=== PATIENT | male | born 1955 | race Caucasian/White ===

== ENCOUNTER 2018-01-27 12:49 | Emergency (ER) | payer BC, OTHER ==
[2018-01-27] MEDS ORDERED: RABIES IMMUNE GLOBULIN 1500 INTERNATIONAL UNITS/10 ML VIAL (90375) IM (14:45)
[2018-01-27] MEDS: RABIES IMMUNE GLOBULIN 300 INTERNATIONAL UNITS/2 ML VIAL (90375) IM (14:45)
[2018-01-27] MEDS: RABIES VACCINE HUMAN 2.5 INTERNATIONAL UNITS/ML VIAL (90675) IM (16:56)
[2018-01-27] MEDS: RABIES IMMUNE GLOBULIN 1500 INTERNATIONAL UNITS/10 ML VIAL (90375) IM (16:58)
== END 2018-01-27 18:42 | disposition home or self-care (01) ==
LOC: M ED 12:49
DX: S01.85XA Open bite of other part of head, initial encounter (principal); W55.81XA Bitten by other mammals, initial encounter; Y92.018 Other place in single-family (private) house as the place of occurrence of the external cause; Z20.3 Contact with and (suspected) exposure to rabies
CPT/HCPCS: 90375

== ENCOUNTER 2018-01-30 09:53 | Emergency (ER) | payer BC, OTHER ==
[2018-01-30] MEDS: RABIES VACCINE HUMAN 2.5 INTERNATIONAL UNITS/ML VIAL (90675) IM (10:29)
== END 2018-01-30 11:03 | disposition home or self-care (01) ==
LOC: M ED 09:53
DX: Z20.3 Contact with and (suspected) exposure to rabies (principal); Z23 Encounter for immunization
CPT/HCPCS: 90675

== ENCOUNTER 2018-02-03 02:23 | Emergency (ER) | payer BC, OTHER | END 2018-02-03 03:29 | disposition left against medical advice (07) | LOC: M ED 02:23 | DX: Z53.21 Procedure and treatment not carried out due to patient leaving prior to being seen by health care provider (principal) ==

== ENCOUNTER 2018-02-03 18:18 | Emergency (ER) | payer BC, OTHER ==
[2018-02-03] MEDS: RABIES VACCINE HUMAN 2.5 INTERNATIONAL UNITS/ML VIAL (90675) IM (19:13)
== END 2018-02-03 19:33 | disposition home or self-care (01) ==
LOC: M ED 18:18
DX: Z20.3 Contact with and (suspected) exposure to rabies (principal)
CPT/HCPCS: 90675

== ENCOUNTER 2018-02-10 13:03 | Emergency (ER) | payer BC, OTHER ==
[2018-02-10] MEDS: RABIES VACCINE HUMAN 2.5 INTERNATIONAL UNITS/ML VIAL (90675) IM (13:19)
== END 2018-02-10 13:45 | disposition home or self-care (01) ==
LOC: M ED 13:03
DX: Z23 Encounter for immunization (principal); Z20.3 Contact with and (suspected) exposure to rabies
CPT/HCPCS: 90675

== ENCOUNTER 2021-09-29 14:42 | Emergency (ER) | payer BC, OTHER ==
[~2021-09-29] VITALS: Ht 167.6 cm; Wt 81.8 kg
[2021-09-29] MEDS ORDERED: CYCL-707 (15:34)
[2021-09-29] MEDS ORDERED: PRED20TA PO (17:41)
[2021-09-29] MEDS ORDERED: CYCL-707 PO (17:41)
[2021-09-29 18:37] VITALS: BP 180/83
== END 2021-09-29 18:38 | disposition home or self-care (01) ==
LOC: M ED 14:42
DX: M51.36 Other intervertebral disc degeneration, lumbar region (principal); M54.31 Sciatica, right side

== ENCOUNTER 2021-11-12 18:59 | Emergency (ER) | payer BC ==
[~2021-11-12] VITALS: Ht 167.6 cm; Wt 104.6 kg
[~2021-11-12 18:59] MED LIST: CYCL-707; CYCL-707 PO; PRED20TA PO
[2021-11-12] MEDS ORDERED: METHOCARBAMOL 1,000 MG/10 ML VIAL (J2800) IV ONE (21:30)
[2021-11-12 21:38] LABS: BASO % 0.5 % (0.0-1.0); EOS # 0.1 10^3/uL (0.0-0.5); EOS % 1.6 % (0.0-3.0); HEMATOCRIT 45.4 % (42.0-52.0); HEMOGLOBIN 14.1 g/dl (13.5-17.5); LYMPH # 3.2 10^3/uL (1.5-5.0); LYMPH % 39.5 % (24.0-44.0); MEAN CORPUSCULAR HEMOGLOBIN 26.9 pg (27.0-33.0); MEAN CORPUSCULAR HGB CONC 31.1 g/dl (32.0-36.5); MEAN CORPUSCULAR VOLUME 86.5 fl (80.0-96.0); MONO % 12.1 % (2.0-8.0); NEUTROPHILS # 3.8 10^3/uL (1.5-8.5); NEUTROPHILS % 45.8 % (36.0-66.0); PLATELET COUNT, AUTOMATED 236 10^3/uL (150-450); RED BLOOD COUNT 5.25 10^6/uL (4.30-6.10); WHITE BLOOD COUNT 8.2 10^3/uL (4.0-10.0)
[2021-11-12 22:11] LABS: RSV AMPLIFICATION NEGATIVE (NEGATIVE)
[2021-11-12 22:22] LABS: ALBUMIN 3.6 GM/DL (3.2-5.2); ALT/SGPT 26 U/L (12-78); BILIRUBIN,DIRECT < 0.1 MG/DL (0.0-0.2); BILIRUBIN,TOTAL 0.4 MG/DL (0.2-1.0); BLOOD UREA NITROGEN 22 MG/DL (7-18); CALCIUM LEVEL 10.5 MG/DL (8.8-10.2); CARBON DIOXIDE LEVEL 29 MEQ/L (21-32); CHLORIDE LEVEL 111 MEQ/L (98-107); CREATININE FOR GFR 1.04 MG/DL (0.70-1.30); GLOMERULAR FILTRATION RATE > 60.0 (>49); GLUCOSE, FASTING 92 MG/DL (70-100); NT-PRO BNP 57 PG/ML (<125); POTASSIUM SERUM 4.2 MEQ/L (3.5-5.1); SODIUM LEVEL 146 MEQ/L (136-145); TOTAL PROTEIN 7.1 GM/DL (6.4-8.2)
[2021-11-12 22:30] VITALS: BP 158/83
[2021-11-12] MEDS ORDERED: LASI20TA3 PO (22:44)
[2021-11-12] MEDS ORDERED: METH-1165 PO (22:44)
== END 2021-11-12 23:03 | disposition home or self-care (01) ==
LOC: M ED 18:59
DX: R60.9 Edema, unspecified (principal); M51.9 Unspecified thoracic, thoracolumbar and lumbosacral intervertebral disc disorder; Z79.899 Other long term (current) drug therapy
CPT/HCPCS: 71045; 80048; 80076; 83880; 84484; 85025; 87631; 93005; 93041; 93970; 94760; 96374; 99284; J2800

== ENCOUNTER 2024-09-25 13:05 | Emergency (ER) | payer BC ==
[~2024-09-25] VITALS: Ht 167.6 cm; Wt 97.4 kg
[~2024-09-25 13:05] MED LIST changes: +LASI20TA3 PO; +METH-1165 PO
[2024-09-25] MEDS: LIDOCAINE 2% MDV 20ML VIAL SC ONE (18:55)
[2024-09-25 19:09] VITALS: BP 182/90; TEMP 98.4; O2SAT 99
[2024-09-25] MEDS ORDERED: CEPH500C PO (19:50)
== END 2024-09-25 20:15 | disposition home or self-care (01) ==
LOC: M ED 13:05
DX: S61.411A Laceration without foreign body of right hand, initial encounter (principal); Y92.019 Unspecified place in single-family (private) house as the place of occurrence of the external cause; Y93.9 Activity, unspecified; Y99.9 Unspecified external cause status; Z79.2 Long term (current) use of antibiotics